=== PATIENT | female | born 1975 | race Caucasian/White ===

== ENCOUNTER 2023-05-11 19:10 | Emergency (ER) | payer MEDICAID ==
[2023-05-11 20:04] LABS: BASOPHILS ABSOLUTE AUTO 0.05 K/mm3 (0.01-0.08); BASOPHILS PERCENT AUTO 0.4 % (0.1-1.2); EOSINOPHILS ABSOLUTE AUTO 0.33 K/mm3 (0.04-0.36); EOSINOPHILS PERCENT AUTO 2.5 (0.7-5.8); HEMATOCRIT 41.2 % (34.1-44.9); HEMOGLOBIN 13.5 gm/dl (11.2-15.7); IMMATURE GRAN ABSOLUTE AUTO 0.04 K/mm3 (0.00-0.10); IMMATURE GRAN PERCENT AUTO 0.3 % (<=1.0); LYMPHOCYTES ABSOLUTE AUTO 1.58 K/mm3 (1.18-3.74); LYMPHOCYTES PERCENT AUTO 12.1 % (19.3-51.7); MEAN CORPUSCULAR HEMOGLOBIN 30.2 pg (25.6-32.2); MEAN CORPUSCULAR HGB CONC 32.8 g/dl (32.2-35.5); MEAN CORPUSCULAR VOLUME 92.2 fl (79.4-94.8); MONOCYTES ABSOLUTE AUTO 1.29 K/mm3 (0.24-0.36); MONOCYTES PERCENT AUTO 9.9 % (4.7-12.5); NEUTROPHILS ABSOLUTE AUTO 9.72 K/mm3 (1.56-6.13); NEUTROPHILS PERCENT AUTO 74.8 % (34.0-71.1); PLATELET COUNT,PLT 310 K/mm3 (182-369); RED BLOOD CELL COUNT 4.47 M/mm3 (3.98-5.22); WHITE BLOOD CELL COUNT,WBC 13.01 K/mm3 (3.98-10.04)
[2023-05-11] MEDS ORDERED: Sodium Chloride 0.9% 1,000 ML IV STA (20:20)
[2023-05-11] MEDS ORDERED: HYDROmorphone 0.5 MG/0.5 ML Syringe IVPUSH ONE (20:20)
[2023-05-11] MEDS ORDERED: Ondansetron 4 MG/2 ML SDV IVPUSH ONE (20:20)
[2023-05-11] MEDS ORDERED: diphenhydrAMINE 50 MG/ML SDV IVPUSH ONE (20:21)
[2023-05-11] MEDS ORDERED: Dexamethasone 4 MG/ML SDV IVPUSH ONE (20:21)
[2023-05-11 20:29] LABS: A/G RATIO 0.7 (1-2); ANION GAP 10.9 (5-15); BILIRUBIN TOTAL 0.4 mg/dL (0.2-1.0); BUN/CREATININE RATIO 12.5 (14-18); C-REACTIVE PROTEIN 11.8 mg/dL (<1.0); CALCIUM 8.9 mg/dL (8.5-10.1); CREATININE 0.8 mg/dL (0.55-1.02); EST CRCL DRUG DOSING (CG) 79.07 mL/min; POTASSIUM,K 3.9 mEq/L (3.5-5.1); PROTEIN TOTAL,TP 7.6 g/dl (6.4-8.2)
[2023-05-11] MEDS ORDERED: Iopamidol 612 MG/ML 100 ML Bottle IVPUSH ONE (21:09)
[2023-05-11 21:19] LABS: APPEARANCE,URINE CLEAR (Clear); BILIRUBIN,URINE NEGATIVE (Negative); COLOR,URINE YELLOW (Yellow); GLUCOSE,URINE NEGATIVE (Negative); KETONES,URINE NEGATIVE (Negative); LEUKOCYTE ESTERASE,URINE NEGATIVE (Negative); NITRITE,URINE NEGATIVE (Negative); OCCULT BLOOD,URINE NEGATIVE (Negative); PROTEIN,URINE 1+ (Negative)
[2023-05-11] MEDS ORDERED: Piperacillin/Tazobactam 4.5 GM in Sodium Chloride 0.9% 100 ML IV ONE (21:55)
[2023-05-11 21:56] LABS: BACTERIA,URINE FEW /hpf (FEW); MUCUS,URINE MODERATE /hpf (FEW); RBC,URINE 0-5 /hpf (0-5); SQUAMOUS EPITHELIAL CELLS,UR 0-5 /hpf (0-5); WBC,URINE 0-5 /hpf (0-5)
[2023-05-11] MEDS ORDERED: Ketorolac 30 MG/ML SDV IVPUSH ONE (21:59)
== END 2023-05-11 23:28 | disposition home or self-care (01) ==
LOC: MERGE 19:10 → JD.ED 19:10 → EDBD 19:10 → JD.ED 23:28
DX: J03.90 Acute tonsillitis, unspecified (principal); E66.9 Obesity, unspecified; Z68.41 Body mass index [BMI] 40.0-44.9, adult; Z88.1 Allergy status to other antibiotic agents; Z20.822 Contact with and (suspected) exposure to COVID-19
CPT/HCPCS: 36415; 70491; 80053; 81001; 85025; 86140; 87635; 87651; 96361; 96365; 96375; 99284; J1100; J1170; J1200; J1885; J2405; J2543; J3490; J7030; Q9967; U0002

== ENCOUNTER 2024-08-14 00:13 | Emergency (ER) | payer MEDICAID ==
[2024-08-14] MEDS: LORazepam 2 MG/ML SDV IM ONE (00:23)
[2024-08-14] MEDS: diphenhydrAMINE 50 MG/ML SDV IM ONE (00:23)
[2024-08-14] MEDS: Haloperidol Lactate 5 MG/ML SDV IM ONE ×2 (00:23→00:52)
[2024-08-14] MEDS: OLANZapine 10 MG Vial IM ONE ×2 (01:42→03:30)
[2024-08-14 02:41] LABS: BASOPHILS ABSOLUTE AUTO 0.1 K/mm3 (0.0-0.2); BASOPHILS PERCENT AUTO 0.4 % (0.0-1.0); EOSINOPHILS ABSOLUTE AUTO 0.2 K/mm3 (0.0-0.4); EOSINOPHILS PERCENT AUTO 1.7 % (0.0-6.0); HEMATOCRIT 43.3 % (37.0-47.0); HEMOGLOBIN 14.3 gm/dl (12.0-16.0); IMMATURE GRAN ABSOLUTE AUTO 0.06 K/mm3 (0.00-0.05); IMMATURE GRAN PERCENT AUTO 0.4 % (0.0-0.4); LYMPHOCYTES ABSOLUTE AUTO 3.1 K/mm3 (1.0-4.8); LYMPHOCYTES PERCENT AUTO 22.3 % (24.0-44.0); MEAN CORPUSCULAR HEMOGLOBIN 29.5 pg (28.0-32.0); MEAN CORPUSCULAR VOLUME 89.3 fl (83.0-99.0); MEAN PLATELET VOLUME 8.2 fl (9.4-12.3); MONOCYTES ABSOLUTE AUTO 0.9 K/mm3 (0.0-0.8); MONOCYTES PERCENT AUTO 6.5 % (0.0-8.0); NEUTROPHILS ABSOLUTE AUTO 9.5 K/mm3 (1.8-7.7); NEUTROPHILS PERCENT AUTO 68.7 % (41.0-71.0); PLATELET COUNT,PLT 381 K/mm3 (150-400); RED BLOOD CELL COUNT 4.85 M/mm3 (4.10-5.30); WHITE BLOOD CELL COUNT,WBC 13.91 K/mm3 (3.9-11.3)
[2024-08-14 03:17] LABS: A/G RATIO 0.9 (1-2); ALANINE AMINOTRANSFERASE,ALT 24 U/L (14-59); ALBUMIN 3.6 g/dl (3.4-5.0); ALKALINE PHOSPHATASE 84 U/L (46-116); ANION GAP 14.4 (5-15); ASPARTATE AMNIOTRANSFERASE,AST 17 U/L (15-37); BILIRUBIN TOTAL 0.5 mg/dL (0.2-1.0); BLOOD UREA NITROGEN,BUN 24 mg/dL (7-18); BUN/CREATININE RATIO 18.5 (14-18); CALCIUM 8.8 mg/dL (8.5-10.1); CARBON DIOXIDE,CO2 27 mEq/L (21-32); CHLORIDE,CL 103 mEq/L (98-107); CREATININE 1.3 mg/dL (0.55-1.02); ESTIMATED GFR 51 mL/min (>60); GLUCOSE RANDOM 117 mg/dL (70-99); POTASSIUM,K 3.4 mEq/L (3.5-5.1); PROTEIN TOTAL,TP 7.5 g/dl (6.4-8.2); SODIUM,NA 141 mEq/L (136-145)
[2024-08-14 03:26] LABS: ACETAMINOPHEN 0 ug/mL (10-30)
[2024-08-14 03:56] LABS: BARBITURATE SCREEN,URINE NEGATIVE (CUTOFF=200); BENZODIAZEPINES SCREEN,URINE PRESUMPTIVE POSITIVE (CUTOFF=150); BUPRENORPHINE SCREEN,URINE NEGATIVE (CUTOFF=10); METHADONE SCREEN, URINE NEGATIVE (CUTOFF=200); METHAMPHETAMINES SCREEN, URINE PRESUMPTIVE POSITIVE (CUTOFF=500); OXYCODONE SCREEN,URINE NEGATIVE (CUT0FF=100); THC SCREEN,URINE 20 NG/ML PRESUMPTIVE POSITIVE (CUTOFF=50)
[2024-08-14 03:59] LABS: T4 FREE 1.23 ng/dL (0.76-1.46)
[2024-08-14 04:16] LABS: AMPHETAMINES SCREEN, URINE PRESUMPTIVE POSITIVE (CUTOFF=500)
== END 2024-08-14 09:12 ==
LOC: JD.ED 00:13
DX: F23 Brief psychotic disorder (principal); F15.10 Other stimulant abuse, uncomplicated; E66.9 Obesity, unspecified; Z88.8 Allergy status to other drugs, medicaments and biological substances
CPT/HCPCS: 36415; 80053; 80143; 80179; 80306; 80307; 84439; 84443; 84703; 85025; 87635; 93005; 99285; J1200; J1630; J2060; J2359; 93010; U0002

== ENCOUNTER 2024-11-12 18:06 | Emergency (ER) | payer MEDICAID ==
[2024-11-12 19:10] LABS: BASOPHILS ABSOLUTE AUTO 0.1 K/mm3 (0.0-0.2); BASOPHILS PERCENT AUTO 0.4 % (0.0-1.0); EOSINOPHILS ABSOLUTE AUTO 0.1 K/mm3 (0.0-0.4); EOSINOPHILS PERCENT AUTO 0.4 % (0.0-6.0); HEMATOCRIT 40.9 % (37.0-47.0); HEMOGLOBIN 13.5 gm/dl (12.0-16.0); IMMATURE GRAN ABSOLUTE AUTO 0.11 K/mm3 (0.00-0.05); IMMATURE GRAN PERCENT AUTO 0.6 % (0.0-0.4); LYMPHOCYTES ABSOLUTE AUTO 1.3 K/mm3 (1.0-4.8); LYMPHOCYTES PERCENT AUTO 6.9 % (24.0-44.0); MEAN CORPUSCULAR HEMOGLOBIN 29.2 pg (28.0-32.0); MEAN CORPUSCULAR VOLUME 88.3 fl (83.0-99.0); MEAN PLATELET VOLUME 8.1 fl (9.4-12.3); MONOCYTES ABSOLUTE AUTO 1.2 K/mm3 (0.0-0.8); MONOCYTES PERCENT AUTO 6.5 % (0.0-8.0); NEUTROPHILS PERCENT AUTO 85.2 % (41.0-71.0); PLATELET COUNT,PLT 290 K/mm3 (150-400); RED BLOOD CELL COUNT 4.63 M/mm3 (4.10-5.30); WHITE BLOOD CELL COUNT,WBC 18.79 K/mm3 (3.9-11.3)
[2024-11-12] MEDS: Sodium Chloride 0.9% 1,000 ML IV ONE ×2 (19:11→21:17)
[2024-11-12 19:31] LABS: A/G RATIO 0.8 (1-2); ANION GAP 14.6 (5-15); BILIRUBIN TOTAL 0.5 mg/dL (0.2-1.0); BUN/CREATININE RATIO 12.2 (14-18); CALCIUM 8.8 mg/dL (8.5-10.1); CREATININE 0.9 mg/dL (0.55-1.02); EST CRCL DRUG DOSING (CG) 68.79 mL/min; POTASSIUM,K 3.6 mEq/L (3.5-5.1)
[2024-11-12 19:53] LABS: INR 1.02; PROTHROMBIN TIME 10.8 SECONDS (9.7-12.0)
[2024-11-12 19:54] LABS: PTT,PARTIAL THROMBOPLSTIN TIME 28.4 SECONDS (21.7-31.4)
[2024-11-12 20:10] LABS: LACTIC ACID 0.6 mmol/L (0.4-2.0)
[2024-11-12 20:18] LABS: APPEARANCE,URINE CLEAR (Clear); BILIRUBIN,URINE 1+ (Negative); COLOR,URINE YELLOW (Yellow); GLUCOSE,URINE NEGATIVE (Negative); KETONES,URINE NEGATIVE (Negative); LEUKOCYTE ESTERASE,URINE TRACE (Negative); NITRITE,URINE NEGATIVE (Negative); OCCULT BLOOD,URINE NEGATIVE (Negative); PROTEIN,URINE NEGATIVE (Negative); UROBILINOGEN,URINE 0.2 (0.2-1.0)
[2024-11-12 20:27] LABS: BACTERIA,URINE FEW /hpf (FEW); MUCUS,URINE FEW /hpf (FEW); RBC,URINE 0-5 /hpf (0-5); SQUAMOUS EPITHELIAL CELLS,UR 20-30 /hpf (0-5)
[2024-11-12] MEDS: Acetaminophen 325 MG Tab PO ONE (20:27)
[2024-11-12 20:28] LABS: BARBITURATE SCREEN,URINE NEGATIVE (CUTOFF=200); BENZODIAZEPINES SCREEN,URINE NEGATIVE (CUTOFF=150); BUPRENORPHINE SCREEN,URINE NEGATIVE (CUTOFF=10); METHADONE SCREEN, URINE NEGATIVE (CUTOFF=200); METHAMPHETAMINES SCREEN, URINE PRESUMPTIVE POSITIVE (CUTOFF=500); OXYCODONE SCREEN,URINE NEGATIVE (CUT0FF=100); THC SCREEN,URINE 20 NG/ML NEGATIVE (CUTOFF=50)
[2024-11-12 20:30] LABS: AMPHETAMINES SCREEN, URINE PRESUMPTIVE POSITIVE (CUTOFF=500)
== END 2024-11-12 22:25 | disposition home or self-care (01) ==
LOC: JD.ED 18:06
DX: R51.9 Headache, unspecified (principal); E66.9 Obesity, unspecified; Z68.36 Body mass index [BMI] 36.0-36.9, adult; Z88.8 Allergy status to other drugs, medicaments and biological substances
CPT/HCPCS: 36415; 71045; 80053; 80306; 81001; 83605; 85025; 85610; 85730; 87040; 87086; 87428; 87651; 96360; 96361; 99283; A9270; J7030; 99282